=== PATIENT | male | born 1985 | race Caucasian/White ===

== ENCOUNTER 2023-09-11 15:49 | Emergency (ER) | payer OTHER, SELFPAY ==
[2023-09-11 16:10] VITALS: BP 167/90; PULSE 110; RESP 16; TEMP 36.9; O2SAT 97; BMI 31.6
[2023-09-11 16:38] VITALS: BP 143/96; PULSE 88; RESP 16; O2SAT 95
--- NOTE | 2023-09-11 16:41 | PC.NURSE ---
Pt coming in after an accidental OD of heroin. Pt reports using every other day and drinking alcohol every other day, pt sleepy but arousable and able to follow commands reports no pain anywhere.
--- NOTE | 2023-09-11 16:47 | ED_ITS ---
HPI - Overdose General Chief Complaint: Overdose Stated Complaint: Heroin overdose, 4mg narcan given Time Seen by Provider: 09/11/23 16:20 Source: patient Mode of arrival: ambulatory Limitations: no limitations History of Present Illness HPI Narrative: Patient history of substance abuse took 4 bags of heroin was semi-responsive recovery from was given Narcan prior to arrival on arrival patient is saturating 95% is alert arousable no chest pain no other substances abuse patient from [place] came to [place] recently patient had been using this amount of air in the past without any significant effect it was unusual for him to be unresponsive with this amount of heroin per patient Related Data Allergies Allergy/AdvReac Type Severity Reaction Status Date / Time No Known Allergies Allergy Verified 09/11/23 16:50 Review of Systems 2 Review of Systems: Yes all other systems are reviewed and are negative [facility] Social History Social History Alcohol intake: current Alcohol intake frequency: 3 or more drinks per day Alcohol type: hard liquor Smoked in Last 30 Days: Yes Use of substances other than those prescribed or required for medical reasons: Yes Substance Use Type: Heroin Substance Use Frequency: Weekly Last Used Substance: Just Prior to Admission Any prior treatment program specific to substance use: Yes Advance Directives: No Advance Directives Information Provided: No Physical Exam 2 Vital Signs: Vital Signs: Last Vital Signs Temp 98.0 F 09/11/23 20:00 Pulse 67 09/11/23 20:00 Resp 15 09/11/23 20:00 BP 120/68 09/11/23 20:00 Pulse Ox 95 09/11/23 20:00 O2 Del Method Room Air 09/11/23 20:00 BMI result Body Mass Index 31.6 Appearance: Alert. Oriented X3. No acute distress. Eyes: PERRLA, No Nystagmus ENT: Pharynx normal. Oral Mucosa moist AT NC Neck: Normal inspection. Neck supple. CVS: Normal heart rate and rhythm. Pulses normal. Respiratory: No respiratory distress. Equal air entry bilateral, no wheezing/rales/rhonchi Abdomen: Soft and nontender. Bowel sounds are present, no mass palpable, no CVA tenderness Skin: Skin warm and dry. Normal skin color. Normal skin turgor. Extremities: No lower extremity edema. No calf tenderness Neuro: Oriented X 3. No motor deficit. No sensory deficit.No cerebellar signs , cranial nerves II-XII intact Medical Decision Making Medical Decision Making [facility] Narrative: Patient seen by the care team with discharging patient home in a.m. for detox Differential Diagnosis Differential Diagnoses: The differential diagnosis associated with the presentation includes Opiate overdose/polysubstance abuse Lab Data [facility] Lab Attestation statement: I reviewed the patient's lab results. 09/11/23 16:57 09/11/23 16:57 Labs: Lab Results 09/11/23 Range/Units 16:57 WBC 5.2 (4.8-10.8) X10*3/uL RBC 4.50 L (4.60-5.80) X10*6/uL Hgb 13.3 L (14.0-18.0) g/dl Hct 38.2 L (42.0-52.0) % MCV 84.9 (80.0-98.0) fL MCH 29.6 (27.0-33.0) pg MCHC 34.8 (31.0-36.0) g/dl RDW 13.5 (11.0-16.0) % Plt Count 67 L (160-400) X10*3/uL MPV 10.4 (9.4-12.4) fL Immature Gran % (Auto) 0.6 H (0.0-0.4) % Neut % (Auto) 77.1 H (45-73) % Lymph % (Auto) 16.9 L (20-40) % Crane % (Auto) 5.0 (2-11) % Eos % (Auto) 0.2 (0-4) % Baso % (Auto) 0.2 (0-2) % Lymph # (Auto) 0.9 L (1.2-4.9) X10*3/uL Crane # (Auto) 0.3 (0.1-1.2) X10*3/uL Eos # (Auto) 0.0 (0.0-0.4) X10*3/uL Baso # (Auto) 0.0 (0.0-0.2) X10*3/uL Abs Immat Gran (auto) 0.03 (0.00-0.03) X10*3/uL Absolute Neuts (auto) 4.0 (2.0-8.3) x10*3/uL Absolute Nucleated RBC 0.000 (0.0-0.012) X10*3/uL Nucleated RBC % (auto) 0.0 (0.0-0.2) /100WBC Sodium 138 (135-145) mmol/L Potassium 4.7 (3.3-5.1) mmol/L Chloride 107 (96-108) mmol/L Carbon Dioxide 24 (22-29) mmol/L Anion Gap 12 (12-20) BUN 25 H (9-16) mg/dL Creatinine 0.90 (0.5-1.4) mg/dL Estim Creat Clear Calc 114.5 Estimated GFR > 60 Random Glucose 98 (60-115) mg/dL Calcium 9.4 (8.4-10.2) mg/dL Total Bilirubin 0.8 (0.0-1.0) mg/dL AST 133 H (5-37) U/L ALT 194 H (0-40) U/L Alkaline Phosphatase 60 (39-117) U/L Total Protein 7.9 (6.5-8.0) g/dL Albumin 4.0 (3.5-5.0) g/dL Ethyl Alcohol < 10 mg/dL Discharge Plan Discharge Clinical Impression: Poisoning by opiate or related narcotic Patient Disposition: Still a Patient
--- NOTE | 2023-09-11 16:51 | ECG_ITS ---
Test Reason : OVERDOSE Blood Pressure : / mmHG Vent. Rate : 073 BPM Atrial Rate : 073 BPM P-R Int : 148 ms QRS Dur : 078 ms QT Int : 408 ms P-R-T Axes : 055 021 015 degrees QTc Int : 449 ms Normal sinus rhythm Normal ECG No previous ECGs available Referred By: Jose Enrique Cunningham Electronically Signed By:ARIS ROGERS MD
[2023-09-11 17:03] LABS: MANUAL DIFF FLAG NO
[2023-09-11 17:07] LABS: Basophils Percent Auto 0.2 % (0-2); Eosinophils Percent Auto 0.2 % (0-4); Hematocrit 38.2 % (42.0-52.0); Hemoglobin 13.3 g/dl (14.0-18.0); Imm Gran Abs Auto 0.03 X10*3/uL (0.00-0.03); Imm Gran Pct Auto 0.6 % (0.0-0.4); Lymphocytes Absolute Auto 0.9 X10*3/uL (1.2-4.9); Lymphocytes Percent Auto 16.9 % (20-40); Mean Corpuscular HGB Conc 34.8 g/dl (31.0-36.0); Mean Corpuscular Hemoglobin 29.6 pg (27.0-33.0); Mean Corpuscular Volume 84.9 fL (80.0-98.0); Mean Platelet Volume 10.4 fL (9.4-12.4); Monocytes Absolute Auto 0.3 X10*3/uL (0.1-1.2); Neutrophils Percent Auto 77.1 % (45-73); Red Cell Distribution Width 13.5 % (11.0-16.0); White Blood Count 5.2 X10*3/uL (4.8-10.8)
[2023-09-11 17:36] LABS: Alanine Aminotransferase 194 U/L (0-40); Alkaline Phosphatase 60 U/L (39-117); Anion Gap 12 (12-20); Aspartate Amino Transferase 133 U/L (5-37); Bilirubin Total 0.8 mg/dL (0.0-1.0); Blood Urea Nitrogen 25 mg/dL (9-16); Calcium 9.4 mg/dL (8.4-10.2); Carbon Dioxide 24 mmol/L (22-29); Chloride 107 mmol/L (96-108); Creatinine Clr Calc Pharmacy 114.5; Estimated Glomerular Filt Rate > 60; Ethanol < 10 mg/dL; Glucose Random 98 mg/dL (60-115); Potassium 4.7 mmol/L (3.3-5.1); Sodium 138 mmol/L (135-145); Total Protein 7.9 g/dL (6.5-8.0)
[2023-09-11 17:53] LABS: Platelet Count 67 X10*3/uL (160-400)
--- NOTE | 2023-09-11 18:15 | HO.SUDE ---
Pt is a 38 yo male who is unknown previously to [facility]. He arrives today via ems after overdose while at his T[facility] program ([facility]). Pt has been in the program for about 1 month. He reported using 4 bags of heroin intranascally. He denied intentional overdose, and did not believe he would overdose on this quantity of heroin. CARE Team conducts SUDE assessment with pt. Pt is engaged, however is still fairly sedate. Pt reported that he is orignally from [place], [place], and he does not know to drug supply/dealers in this area. Pt is Pt is remorseful for his relapse, reporting that he has largely been in recovery for the past year. His hope is to return to [facility]. CARE Team made an effort to get in touch with TSS, being transferred within [facility] 6+ times. CARE Team has asked for the fire safety manager therapeutic recreation leader to reach out and connect [facility] with [facility]. Harm reduction and education is provided. Pt is encouraged to start small and go slow should he relapse again, however his goal att is to reenter recovery. Pt is reminded about the decrease in tolerence that can happen when someone is in recovery. Pt education about the possibilities and danger of zylazine and fentanyl being in the drug supply. Further harm reduction and safety planning will be needed if pt is not able to return to [facility]. Pt should be discharged with NARCAN, as he presumably used his own today. Plan is discussed with the provider and nurse.
[2023-09-11 18:42] VITALS: BP 136/75; PULSE 76; RESP 12; O2SAT 95
--- NOTE | 2023-09-11 19:22 | PC.NURSE ---
this rn assumed care of pt. pt denies pain at this time. pt sitting up eating sandwich. pt denies si/hi. awaiting care team placement.
[2023-09-11 20:00] VITALS: BP 120/68; PULSE 67; RESP 15; TEMP 36.7; O2SAT 95
--- NOTE | 2023-09-11 21:49 | MHC.CARE ---
CARE team was contacted by Chai MERCADO curbstone setter supervisor shuttle veneering, Jacqueline (per the caller ID), . He was requesting an update on how the pt is doing and to share that the pt isn't able to return to the program due to him bringing illicit substances into the program and then overdosing on site. He reported that they have arranged for him to be able to go to the [facility] detox in [place] and will gather his belongings and bring them to him there. This technical writer shared that we are able to get him a ride to the detox in the morning and will update him that his belongings will be brought to him there. This technical writer spoke with attending physician Marisa CORDOVA who is aware of the plan of care. Pt will remain in the ED overnight with plan for transport to [facility] in the morning. Pt was updated re: the plan of care and that he will be sent to [facility] in the morning as a walk in but they will be expecting him.
--- NOTE | 2023-09-11 21:59 | PC.NURSE ---
pt resting in stretcher comfortably, no acute distress, respirations even and unlabored. no new orders at this time.
[2023-09-12 03:38] VITALS: BP 124/66; PULSE 68; RESP 16; TEMP 36.8; O2SAT 93
[2023-09-12 03:58] LABS: Amphetamine Screen Urine Not Detected (Not Detect); Barbiturates, Urine Not Detected (Not Detect); Benzodiazepines Screen Urine Not Detected (Not Detect); Cannabinoid Screen Urine Not Detected (Not Detect); Cocaine Screen Urine POSITIVE (Not Detect); Fentanyl, urine POSITIVE (Not Detect); Opiate Screen Urine POSITIVE (Not Detect); Phencyclidine Screen Urine Not Detected (Not Detect)
--- NOTE | 2023-09-12 04:11 | PC.NURSE ---
pt ambulated to bathroom with steady gait.
--- NOTE | 2023-09-12 07:23 | PC.NURSE ---
patient appears to be sleeping, respirations equal and unlabored. patient dhows no signs of distress, on tele monitor
--- NOTE | 2023-09-12 08:34 | HE.PHANOTE ---
Methadone verification form received from ED, 100 mg [facility]. Last dose 09/11/23 0927
[2023-09-12] MEDS: methADONE HCl 20 MG/2 ML ORAL.CONC 100 MG PO (09:07)
--- NOTE | 2023-09-12 11:20 | HO.SUDE ---
Addendum entered by Bryan Larkin 09/12/23 12:43: [facility] has a bed held for pt and Angelique is being ordered to send pt. Original Note: Met with pt in ED6 who is here for OD to complete SUDE. Pt informs he was taking about 1 gram of heroin a day nasally out in [place] but since comeone to [place] was not familiar with the terms of bags and bundles and took 4 bags of heroin nasally yesterday resulting in OD. Pt informs he is currently on 100 mg of Methadone from [facility] and Last dose verified 09/11/23. Pt is currently interested in ATS and reported no history of OD. T/W reviewed harm reduction and overdose prevention with pt who verbalized understanding with no other questions or concerns at this time. ATS bed search in process, provider aware.
[2023-09-12 13:07] VITALS: BP 118/67; PULSE 85; RESP 18; TEMP 36.4; O2SAT 94
== END 2023-09-12 13:12 | disposition home or self-care (01) ==
PROVIDERS: Emergency Provider Internal Medicine
DX: T40.1X1A Poisoning by heroin, accidental (unintentional), initial encounter (principal); Y92.9 Unspecified place or not applicable; Z79.899 Other long term (current) drug therapy
CPT/HCPCS: 36415; 80053; 80307; 85025; 93005; 99285

== ENCOUNTER → 2023-09-11 16:51 | Outpatient (BNV) | payer OTHER, SELFPAY | PROVIDERS: Emergency Provider Internal Medicine; Visit Provider Internal Medicine Cardiovascular Disease | DX: R41.82 Altered mental status, unspecified (principal) | CPT/HCPCS: 93010 ==